=== PATIENT | male | born 1945 | race Caucasian/White ===

== ENCOUNTER 2019-03-03 08:40 | Inpatient (IN) | payer OTHER ==
[~2019-03-03] VITALS: Ht 175.3 cm; Wt 103.5 kg
--- NOTE | ~2019-03-03 | HC ---
[facility] [place] [address] CONSULTATION Name: JOSE SHELTON Room #: 239-P ADM IN M.R.#: [id number] Admission: 03/03/19 ������������������ Attend Phys: Tony Sullivan MD Discharge: ������������������ Date of : 43 Report #: [id number] THIS REPORT FOR: //name// CC: Radu Sullivan DATE OF SERVICE: 03/05/2019 HISTORY OF PRESENT ILLNESS: This 73-year-old white male was admitted through the Emergency Room with development of purpuric rash on his right arm. He had recently been transferred to nursing facility following hospitalization at [facility]. He was initially taken to the [facility] after a fall/striking his head, was found to have a subdural hematoma. He has a remote history of myeloma with no recent treatment, but unfortunately none of those records are currently available. I was able to obtain the records from [facility], which say nothing regarding his myeloma and only in regards to the neurosurgical consultation. PAST MEDICAL HISTORY: Significant for hypertension and previous bipolar disease, coronary artery disease and hyperlipidemia. ALLERGIES: HE HAS AN ALLERGY TO SIMVASTATIN. MEDICATIONS: Listed as in the MFR. REVIEW OF SYSTEMS: Negative for any sweats, chills, fevers, weight loss, new bony pain or masses, but he is a poor historian. PHYSICAL EXAMINATION: GENERAL: Shows him alert in the chair, but confused. NECK: Supple. CHEST: Chest is clear. CARDIOVASCULAR: Normal S1, S2. ABDOMEN: Soft. The skin showed nonblanching purpura on the right arm. This is not palpable or indurated. It is not hot, red or tender. EXTREMITIES: Show no clubbing, cyanosis or edema. NEUROLOGIC: Altered mental status. PSYCHIATRIC: Not agitated. LYMPHATICS: Revealed no palpable supraclavicular adenopathy. LABORATORY DATA: At [facility] show mild thrombocytopenia and renal failure. ASSESSMENT: Purpura. [facility] [address] [place] [address] CONSULTATION Name: JOSE SHELTON Room #: 239-P ADM IN .R.#: [id number] Admission: 03/03/19 ������������������ Attend Phys: Tony Sullivan MD Discharge: ������������������ Date of : 44 Report #: [id number] PLAN: This pattern appears to represent from the right upper arm down, perhaps related to earlier blood pressure cuff application or trauma. Of note, he was to receive Lovenox at [facility]. Still trying to obtain his [facility] records regarding his myeloma, but he does have an elevated IgA level here. We will check a free light chain assay and await those results. Thanks for asking us to be involved in his care. ��������������������������������������������� ���������������������������������������� By: ��������������������������������������������� [id number] Janessa Carpenter MD /nt
--- NOTE | ~2019-03-03 | HC ---
[facility] [place] [address] CONSULTATION Name: JOSE SHELTON Room #: 239-P ADM IN M.R.#: [id number] Admission: 03/03/19 ������������������ Attend Phys: Tony Sullivan MD Discharge: ������������������ Date of : 44 Report #: [id number] THIS REPORT FOR: //name// CC: Radu Sullivan DATE OF SERVICE: 03/06/2019 REASON FOR CONSULTATION: Elevated creatinine. REASON FOR PRESENTATION: Skin rash. HISTORY OF PRESENT ILLNESS: The details were obtained from the chart. The patient is not able to provide me with history. He was admitted on 03/03/2019. He had been in the longterm since 02/07/2019. He was recovering from an event where he had a subdural hematoma that happened on 02/05/2019. The patient was transferred to [facility]. No surgery was done. He was discharged on to nursing facility. The patient has recently moved from [place] and has declining cognitive function. There is a mention that the patient has history of multiple myeloma, but I am not really sure how accurate is that. The patient has received Keflex and Augmentin in his nursing facility and he started to have rash on the right upper extremity and on his groin. He is not able to give me any further details. The patient was admitted to the hospital for further evaluation. Hematology was consulted. Over the last 24 hours, the patient was transferred to the ICU with a potential sepsis picture, hypotension, tachycardia, elevated white blood cell count. Creatinine on presentation was 1.9, this has trended down to 1.8. A consult was placed for me. PAST MEDICAL HISTORY: 1. Myeloma. 2. Subarachnoid hemorrhage. 3. Hypertension. 4. Hyperlipidemia. REVIEW OF SYSTEMS: Completely unobtainable given the patient's current mental status. PAST SURGICAL HISTORY: Unobtainable given the patient's mental status. MEDICATIONS: Listed amongst his medications: 1. Aripiprazole. 2. Atorvastatin. 3. Clonidine. 4. Lasix. 5. Cephalexin. [facility] [address] [place] [address] CONSULTATION Name: JOSE SHELTON Room #: 239-P ADM IN M.R.#: [id number] Admission: 03/03/19 ������������������ Attend Phys: Tony Sullivna MD Discharge: ������������������ Date of : 44 Report #: [id number] 6. Metoprolol. FAMILY HISTORY: Unobtainable. PHYSICAL EXAMINATION: GENERAL: The patient is oriented x 3. VITAL SIGNS: Blood pressure is marginal at 98/55. HEAD AND NECK: No jugular venous distention. CHEST: Decreased air entry bilaterally. CARDIOVASCULAR: No rub. ABDOMEN: Soft, nontender. EXTREMITIES: Lower extremities, no edema. LABORATORY DATA: Reviewed. The patient has significant leukocytosis at 42,000. Thrombocytopenia with a platelet of 102. Sodium 145, BUN is 46, creatinine is 1.8. Lactic acid is 2.3. ASSESSMENT, IMPRESSION AND PLAN: 1. Unknown baseline creatinine. 2. Elevated serum creatinine. 3. Myeloma. 4. Leukocytosis. 5. Thrombocytopenia. 6. Sepsis syndrome. 7. Would like to obtain the patient's laboratory values from [facility] to decide about the patient's baseline creatinine. He does have many risk factors for acute kidney injury including his current sepsis picture, his myeloma history, his hypotension. At this point, we will initiate the patient on albumin given his volume overload. 8. We will initiate diuresis. 9. Avoid nephrotoxins. 10. Discussed group home plans with his family members. ��������������������������������������������� ���������������������������������������� By: ��������������������������������������������� [id number] [id number] Marlon Nicole MD /nt
--- NOTE | ~2019-03-03 | HC ---
[facility] [place] [address] CONSULTATION Name: JOSE SHELTON Room #: 205-P ADM IN M.R.#: [id number] Admission: 03/03/19 ������������������ Attend Phys: Tony Sullivan MD Discharge: ������������������ Date of : 44 Report #: [id number] THIS REPORT FOR: //name// CC: GALEN Sullivan REQUESTING PHYSICIAN: Dr. Thomson. CHIEF COMPLAINT: Altered mental status. HISTORY OF PRESENT ILLNESS: The patient is a 73-year-old male who presented initially to [facility] on 03/03/2019 from rehabilitation facility after acquiring a diffuse rash, which appeared to be petechial in type after starting Augmentin for pneumonia. The patient had recently moved from [place] to [place] on 01/25/2019, had moved in with his sister initially until able to move into apartment. Fortunately, he sustained a fall with a subdural hematoma. Secondary to this, the patient was admitted to [facility]. He has had significant decline since this time and as of this last weekend had been refusing to take anything by mouth, including food or fluids and had been refusing other interventions and stated he did not want any of this, although today, I am unable to elicit this from the patient. He did refuse several things from the speech therapist today including fluids, although he states he does not understand decisions that I presented to him and certainly reports that he cannot make decisions at this time, although he declines to get other people involved. He states that his two sons would be involved; however, his sister is set up as power of corporate associate attorney, which has not yet been activated. Certainly on discussion with the sister, he has an advanced care directive that has reported that he would want no feeding tubes and/or medical interventions aside from possibility of one round of CPR, which again they did not make that clear as to duration necessarily, but that if he were to have no quality of life that he would not want this intervention either. PAST MEDICAL HISTORY: Significant for hypertension, hyperlipidemia. Additionally, may have had some previous cerebrovascular disease or coronary artery disease, potentially for vasculitis. Also found to have bradycardia to the 30s and 40s over this last weekend. SOCIAL HISTORY: Currently listed as full code, but again I have discussed advanced directive in HPI. ALLERGIES: ZOCOR. MEDICATIONS: Fenofibrate, Lasix, Toprol, Remeron, Zantac, Depakote, Lipitor, Abilify. SOCIAL HISTORY: Again, moved from [place] to [place]. No known history of [facility] [address] [place] [address] CONSULTATION Name: JOSE SHELTON Room #: [facility]- ADM IN M.R.#: [id number] Admission: 03/03/19 ������������������ Attend Phys: Tony Sullivan MD Discharge: ������������������ Date of : 44 Report #: [id number] significant tobacco abuse or alcohol use. FAMILY HISTORY: Noncontributory. SURGICAL HISTORY: Unknown at this time. REVIEW OF SYSTEMS: Difficult to obtain aside from the fact that he denies pain and shortness of breath. He is not answering a lot of my questions at this point in time. PHYSICAL EXAMINATION: VITAL SIGNS: Temperature 36.8, pulse 37, respirations 16, blood pressure 147/75, 97% on 2 L nasal cannula. GENERAL: The patient is at least alert to verbal stimuli, oriented to self, no acute distress. HEENT: No scleral icterus, no conjunctival injection. CARDIOVASCULAR: Bradycardic with irregular rhythm. ABDOMEN: Soft, nontender to palpation, S4, positive bowel sounds in all 4 quadrants. RESPIRATORY: Lungs clear to auscultation bilaterally currently. LABORATORY DATA: These included sodium 146, creatinine 1.1 from 1.9 on admission. Platelets 89. Hemoglobin 13.0. ASSESSMENT AND PLAN: 1. Anorexia, unknown origin for this. The patient denies decline in appetite. Certainly this could be due to neurologic effects of his recent subdural hematoma. He does not wish to pursue any kind of feeding tube based on his previous advanced directive, although he is not able to make decisions for me at this current time. Certainly, based on my assessment today, I do not believe the patient should be making his own medical decision. I believe he is incapacitated from medical standpoint and I have recommended this to the primary team that we activate his sister's durable power of corporate associate attorney, so that she can make decisions further for him. On discussion with her at this point in time, she would wish to pursue an inpatient hospice. She has experience with hospice care as she has worked in the hospice field. I did discuss this with case management. We will place referral for this. Possible will need for long-term care with hospice if he is not a candidate for this. 2. Bradycardia. Certainly due to his advanced directive, he did not want to pursue anything along the lines of the pacemaker or artificial device. I did discuss code status with the sister and spent approximately 35 minutes on the discussion of advanced directives and advanced care planning today. We decided on making him a do not resuscitate code status. Certainly, he was not wanting to have any kind of ventilatory support and his short duration CPR wishes would indicate that it would be unlikely that we would benefit significantly from CPR. 3. Subdural hematoma. Again, this may have had an effect on him overall [address] [place] [address] CONSULTATION Name: JOSE SHELTON Room #: 205-P ADM IN M.R.#: [id number] Admission: 03/03/19 ������������������ Attend Phys: Tony Sullivan MD Discharge: ������������������ Date of : 44 Report #: [id number] neurologically. From the standpoint of his significant decline, I do believe at this point in time, he does qualify for hospice care services and we will pursue as above. Please contact me for any questions regarding this patient. At this point in time, I believe he would be very comfortable in the hospital setting. Certainly, we will pursue as discussed before. ��������������������������������������������� ���������������������������������������� By: ��������������������������������������������� [id number] [id number] Ward Lucas DO /nt
[2019-03-03 08:40] VITALS: BP 109/80
--- NOTE | 2019-03-03 09:02 | NUR ---
THIS PROCESS CONTROL TECH CALLED AND SPOKE WITH LANDY RON AT [facility] TO CLARIFY WHAT MEDICATIONS HAVE GONE THROUGH THE IV. SHE REPORTS THE IV WAS STARTED ON 02/26, HAS ONLY GOTTEN 1L OF NS AND HAS HAD NS FLUSHES EVERY SHIFT SINCE
[2019-03-03] MEDS ORDERED: ABILIFY 5 MG TAB5 MG PO (09:07)
[2019-03-03] MEDS ORDERED: ATORVASTATIN CA40 MG PO (09:07)
[2019-03-03] MEDS ORDERED: AUGMENTIN 875-1 EACH (09:09)
[2019-03-03] MEDS ORDERED: VITAMIN D1000 UNI1 PO (09:09)
[2019-03-03] MEDS ORDERED: BISACODYL SUPP10 MG RECTAL (09:09)
[2019-03-03] MEDS ORDERED: DEPAKOTE125 MG PO (09:10)
[2019-03-03] MEDS ORDERED: FENOFIBRATE160 MG PO (09:10)
[2019-03-03] MEDS ORDERED: CLONIDINE0.1 PO (09:10)
[2019-03-03] MEDS ORDERED: LASIX 20 MG TAB20 MG PO (09:11)
[2019-03-03] MEDS ORDERED: KEFLEX500 M2 PO (09:12)
[2019-03-03] MEDS ORDERED: LOPRESSOR25 PO (09:12)
[2019-03-03] MEDS ORDERED: KLOR-CON 1010 MEQ PO (09:13)
[2019-03-03] MEDS ORDERED: REMERON15 MG PO (09:13)
[2019-03-03] MEDS ORDERED: MILK OF MA400 MG/5 M PO (09:13)
[2019-03-03] MEDS ORDERED: RANITIDINE 150150 M1 PO (09:13)
[2019-03-03 09:32] LABS: ABSOLUTE NEUTROPHILS 4.2 thou/uL (1.4-8.2); BASOPHILS 0.3 % (0.0-2.0); EOSINOPHILS 0.9 % (0.0-3.0); HEMATOCRIT 47.5 % (42.0-52.0); HEMOGLOBIN 16.3 gm/dL (14.0-18.0); LYMPHOCYTES 17.2 % (24.0-44.0); MCH 29.3 pg (26.0-34.0); MCHC 34.2 g/dL (28.0-37.0); MCV 85.7 fL (80.0-100.0); MONOCYTES 10.9 % (1.0-8.0); PLATELET COUNT 119 thou/uL (150-400); POLYS 70.7 % (36.0-66.0); RBC 5.55 mil/uL (4.50-6.00); RDW 16.9 % (10.5-14.5); WBC 5.9 thou/uL (4.0-11.0)
[2019-03-03 09:39] LABS: CALCIUM 10.1 mg/dL (8.5-10.1); CREATININE 1.9 mg/dL (0.7-1.3); POTASSIUM 4.3 mmol/L (3.5-5.1)
[2019-03-03 09:41] LABS: APTT 29.9 Seconds (24.5-32.8); PROTIME 10.1 Seconds (9.3-11.4)
[2019-03-03 10:17] LABS: URINE BILIRUBIN NEGATIVE (Negative); URINE BLOOD TRACE (Negative); URINE CLARITY CLEAR; URINE COLOR YELLOW; URINE GLUCOSE-RANDOM* NEGATIVE (Negative); URINE KETONES NEGATIVE (Negative); URINE LEUKOCYTES-REFLEX NEGATIVE (Negative); URINE NITRITE-REFLEX NEGATIVE (Negative); URINE PROTEIN (DIPSTICK) NEGATIVE (Negative); URINE SPECIFIC GRAVITY 1.015 (1.005-1.035)
[2019-03-03 12:42] VITALS: BP 111/81
[2019-03-03 13:11] VITALS: BP 105/81; BP 107/79
[2019-03-03 16:40] VITALS: BP 96/63
--- NOTE | 2019-03-03 16:42 | NUR ---
Assumed care of Pt on arrival to unit at approx 1400. pt presents in no acute distress, accompanied by sister and brother in law. pt confused but oriented to self and time. no attempts made to get out of bed, but pulling out peripheral iv's and telemetry leads occasionally. able to follow commands appropriately. vasculitis present to left upper ext, edematous fingers hematology to see. pt denies pain, burning or itching to sites. incontinent of bowel and bladder. home meds reconciled. SCDs applied to BLE. no other skin issues. sinus on telemetry. pt progressing toward poc goals.
[2019-03-03 19:58] VITALS: BP 111/75
[2019-03-04 00:02] VITALS: BP 104/70
--- NOTE | 2019-03-04 03:12 | NUR ---
ASSUMED PT CARE AROUND 1900. ORIENTED X 2-3, FORGETFUL AND CONFUSED. DENIES ANY PAIN. PT SLEPT MOST OF THE NIGHT BUT IS EASILY ARROUSABLE. PT IS ABLE TO REPOSITION SELF IN BED. IVF INFUSING ORDERED. VSS. AFEBRILE. REDNESS STILL NOTED TO RT HAND AND ARM. FALL PRECAUTIONS IN PLACE. NOT PROGRESSING WELL TOWARD POC GOALS. WILL CONTINUE TO MONITOR FURTHER.
[2019-03-04 04:50] VITALS: BP 108/68
[2019-03-04 07:40] VITALS: BP 116/72
[2019-03-04 10:08] LABS: IgG 1333 mg/dL (700-1600); IgM 142 mg/dL (15-143)
[2019-03-04 11:10] LABS: IgA 1063 mg/dL (61-437)
--- NOTE | 2019-03-04 15:53 | NUR ---
ASSESSMENT: CM REVIEWED CHART. PT WAS BROUGHT IN DUE TO VASCULITIS, SUBDERMAL HEMATOMA, LOAN. PT WAS RECENTLY AT [facility] AND WENT TO [facility] AND HAS BEEN THERE SINCE. CM SPOKE WITH PATIENTS SISTER/DPOA WHO STATES PATIENT MOVED TO AND WAS SUPPOSED TO GO LIVE IN A SENIOR APT BUT WAS WEAK AND STAYING WITH HIS SISTER AND FELL IN THE HOME. PT HAS BEEN AT [facility] AND PLANS TO RETURN THERE AT DISCHARGE. CM NOTIFIED ADMISSIONS AT [facility] WELL FAXED CLINICAL. SISTER REPORTS PATIENT HAD BEEN USING A WALKER AND WHEELCHAIR AT REHAB BUT WAS NOT USING THIS WHEN HE WAS AT HOME. PT HAS HX OF MULTIPLE MYELOMA WHICH WAS IN REMISSION BUT PT HAS A RASH AND THIS MAY BE CONTRIBUTING TO IT. CM WILL CONTINUE TO FOLLOW TO ASSIST NEEDED.
[2019-03-04 15:56] VITALS: BP 96/54
[2019-03-04 20:24] VITALS: BP 99/66
[2019-03-05] VITALS (16 sets, daily range): BP systolic 69–118; BP diastolic 45–94
--- NOTE | 2019-03-05 01:05 | NUR ---
BP LOW. HR 40S-60S. IVF INFUSING ORDERED. PT HAD NOT VOIDED SO FAR THIS SHIFT. BLADDER SCAN 593ML. NOTIFIED MINING HELPER TOWBOAT CAPTAIN FOR HOSPITALIST. CONTINUE IVF. STRAIGHT CATH X1. THIS RN WENT TO PTS ROOM TO PERFORM STRAIGHT CATH FOR RETENTION AND PT WAS NOTED TO BE INCONTINENT OF LARGE AMOUNT OF URINE. UPDATED MINING HELPER. CANCEL STRAIGHT CATH ORDER. WILL CONTINUE TO MONITOR FURTHER.
--- NOTE | 2019-03-05 03:20 | NUR ---
ASSUMED PT CARE AROUND 1900. PT IS CONFUSED. PT IS DROWSY AND SLEPT MOST OF THE NIGHT BUT IS OFTEN RESTLESS IN HIS SLEEP. DENIES ANY PAIN. INCONTINENT OF URINE. PT IS ABLE TO MOVE SELF IN BED. IVF INFUSING ORDERED. FALL PRECAUTIONS IN PLACE. NOT PROGRESSING WELL TOWARD POC GOALS.
--- NOTE | 2019-03-05 13:16 | NUR ---
ON-GOING ASSESSMENT: CM CONTACTED ADMISSIONS AT [facility] TO LET THEM KNOW PT IS NOT MEDICALLY STABLE FOR DISCHARGE AT THIS TIME. CM FAXED UPDATED CLINICAL TO SNF. CM ASKED TO VERIFY HOW MANY SNF DAYS PATIENT HAS LEFT AND ADMISSIONS STATES THEY WILL CHECK WITH THEIR BUSINESS OFFICE AND CONTACT CM BACK. CM WILL CONTINUE TO FOLLOW TO ASSIST NEEDED.
[2019-03-05 14:06] LABS: KAPPA FREE LIGHT CHAINS 142.6 mg/L (3.3-19.4); KAPPA/LAMBDA RATIO 1.26 (0.26-1.65); LAMBDA FREE LIGHT CHAINS 113.6 mg/L (5.7-26.3)
--- NOTE | 2019-03-05 18:39 | NUR ---
PATIENT REMAINS QUITE RESTLESS ALTERNATING WITH DEEP SLEEP. HE DOES APPEAR IF HE IS IN A DAZE WHERE HE ATTEMPTS TO RESCUE HIMSELF BY TURNING AND CHURNING IN BED. HE HAS ATTEMPTED TO TAKE OFF HIS IV ON NUMBEROUS OCCASIONS. HE HAS BEEN REDIRECTED TO NO EFFECT. BOTELLO CATH PLACED HE HAD A POST VOID RESIDUAL GREATER THAN 400. WILL CONT WITH PLAN OF CARE.
[2019-03-05 20:34] LABS: HEMATOCRIT 39.7 % (42.0-52.0); MCH 28.2 pg (26.0-34.0); MCHC 32.9 g/dL (28.0-37.0)
[2019-03-05 20:35] LABS: MCV 85.7 fL (80.0-100.0); PLATELET COUNT 90 thou/uL (150-400); RBC 4.63 mil/uL (4.50-6.00); RDW 15.9 % (10.5-14.5); WBC 17.5 thou/uL (4.0-11.0)
[2019-03-05 20:36] LABS: HEMOGLOBIN 13.1 gm/dL (14.0-18.0)
[2019-03-05 20:41] LABS: CALCIUM 8.9 mg/dL (8.5-10.1); CREATININE 1.9 mg/dL (0.7-1.3); POTASSIUM 3.5 mmol/L (3.5-5.1)
[2019-03-05 20:45] LABS: URINE BILIRUBIN 2+ (Negative); URINE BLOOD 3+ (Negative); URINE CLARITY SL CLOUDY; URINE COLOR ORANGE; URINE GLUCOSE-RANDOM* NEGATIVE (Negative); URINE KETONES NEGATIVE (Negative); URINE NITRITE-REFLEX NEGATIVE (Negative); URINE PROTEIN (DIPSTICK) TRACE (Negative); URINE UROBILINOGEN >= 8.0 E.U./dl (0.2-1.0)
[2019-03-05 20:46] LABS: URINE LEUKOCYTES-REFLEX 1+ (Negative)
--- NOTE | 2019-03-05 20:48 | NUR ---
RAPID RESPONSE INITIATED, SEE FLOW SHEET AND DOCUMENTATION.
[2019-03-05 20:54] LABS: BACTERIA-REFLEX 1-9 Few /HPF (None Seen); MUCUS 0-3 Light strn/LPF (None Seen); SQUAMOUS 0-3 Few /LPF (0-3); URINE WBC-REFLEX 6-15 Few /HPF (0-5)
[2019-03-05 20:55] LABS: CASTS None Seen /LPF (None Seen); CRYSTALS None Seen /LPF (None Seen); WBC CLUMPS Few (None Seen)
[2019-03-05 20:56] LABS: ABSOLUTE NEUTROPHILS 15.9 thou/uL (1.4-8.2); ANISOCYTOSIS 1+
[2019-03-05 20:59] LABS: BE(vivo) -4.7 mmol/L (-2 to +3); HCO3 17.4 mmol/L (22.0-26.0); PCO2 25.2 mmHg (35.0-45.0); pH 7.458 (7.360-7.450); sO2 97.2 % (92.0-98.0)
--- NOTE | 2019-03-05 21:05 | NUR ---
PT RAPID RESPONSE. ABG'S OBTAINED. RESULTED IN CRITCAL LAB OF LACTATIC ACID 4.75. INSPECTING MACHINE ADJUSTER BELIA PRESENT, RECEIVED ORDERS FOR REDRAW IN 4 HOURS (0100). WILL CONTINUE TO MONITOR.
--- NOTE | 2019-03-05 22:23 | NUR ---
ASSUMED PT CARE AROUND 1900. ORIENTED TO PERSON AND MONTH. VERY DROWSY BUT EASILY ARROUSABLE. PT IS RESTLESS IN BED. DENIES ANY PAIN. UPON INITIAL ASSESSMENT, PT NOTED TO BE SINUS TACHYCARDIA WITH HR 120S-130S. HYPOTENSIVE. BOTELLO TO DD WITH MINIMAL UO. NOTIFIED LIBRARY MANAGER FABRIC WORKER FOREMAN FOR HOSPITALIST. ORDER RECEIVED TO GIVE 250ML NS BOLUS. BOLUS GIVEN WITH NO IMPROVEMENT IN VITAL SIGNS. RESERVATION AGENT PAGED. NOTIFIED LIBRARY MANAGER. SEE RESERVATION AGENT FLOWSHEET FOR DETAILS. LIBRARY MANAGER ROUNDED ON PT AND NOTIFIED OF LAB RESULTS, ABG, CXRAY, AND UA. ANOTHER 250ML NS BOLUS GIVEN PER ORDER. SBP 80S. SEPSIS SCREEN POSITIVE, LIBRARY MANAGER AWARE. BP STILL LOW AFTER RESERVATION AGENT AND BOTH NS BOLUSES. LIBRARY MANAGER NOTIFIED AND ORDERS RECEIVED TO TRANSFER PT TO ICU.
--- NOTE | 2019-03-05 22:52 | NUR ---
LEFT MESSAGE FOR SISTER REGARDING PATIENT TRANSFER TO ICU.
--- NOTE | 2019-03-05 23:08 | NUR ---
PT TRANSFERED TO ICU AT 9590. REPORT GIVEN TO CALIBRATION LABORATORY TECHNICIAN.
--- NOTE | 2019-03-05 23:10 | NUR ---
SPOKE WITH PT'S SISTER TO UPDATE HER ON PT TRANSFER.
--- NOTE | 2019-03-05 23:30 | NUR ---
PT ARRIVED TO UNIT AT 2246. CELESTINO NOTIFIED OF PT ARRIVAL. PT PLACED ON TELEMETRY. CELESTINO TO COME SEE PT AND PUT IN ORDERS. SHE SAID CONTINUE WITH MAINTENANCE IVF AND THE ANTIBIOTIC THAT WAS ORDERED ON 3W.
[2019-03-06] VITALS (45 sets, daily range): BP systolic 70–129; BP diastolic 38–86
[2019-03-06 01:46] LABS: CALCIUM 8.2 mg/dL (8.5-10.1); CREATININE 1.9 mg/dL (0.7-1.3); MAGNESIUM 1.5 mg/dL (1.8-2.4)
[2019-03-06 04:29] LABS: HEMOGLOBIN 12.6 gm/dL (14.0-18.0); RBC 4.47 mil/uL (4.50-6.00)
[2019-03-06 04:33] LABS: CALCIUM 8.2 mg/dL (8.5-10.1); CREATININE 1.9 mg/dL (0.7-1.3); POTASSIUM 4.6 mmol/L (3.5-5.1)
[2019-03-06 04:34] LABS: HEMATOCRIT 38.1 % (42.0-52.0); MCH 28.3 pg (26.0-34.0); MCHC 33.2 g/dL (28.0-37.0); MCV 85.2 fL (80.0-100.0); PLATELET COUNT 102 thou/uL (150-400); RDW 16.6 % (10.5-14.5)
[2019-03-06 04:36] LABS: WBC 42.3 thou/uL (4.0-11.0)
[2019-03-06 05:32] LABS: ABSOLUTE NEUTROPHILS 37.6 thou/uL (1.4-8.2); METAMYELOCYTES 1 %
--- NOTE | 2019-03-06 05:32 | NUR ---
PT RESTING COMFORTABLE IN BED. BP MANAGED WITH LEVO GTT. PT RECEIVED ALBUMIN, ROCEPHIN, VANCOMYCIN, AND ZOSYN DURING THE NIGHT. PT NO C/O PAIN. PT REMAINS DROWSY AND A&O X2-3. PT AFEBRILE. PT REMAINS WITH LOW URINE OUTPUT WILL CALL CELESTINO CELAYA PRODUCT INSPECTION SUPERVISOR TO NOTIFY HER AND OF PT BNP. PT ON 2L NC SATS 98%. RIGHT ARM/HAND RASH/PETECHIAE REMAINS UNCHANGED SINCE PT WAS TX DOWN FROM 3W LAST NIGHT.
[2019-03-06 05:33] LABS: ANISOCYTOSIS 1+; PLATELET ESTIMATE DECREASED
--- NOTE | 2019-03-06 07:22 | NUR ---
PATIENT PLACED ON HOLD DUE TO A CHANGE IN MEDICAL STATUS AND TRANSFER TO ICU. WILL AWAIT NEW OT ORDERS ONCE PATIENT IS MEDICALLY STABLE.
--- NOTE | 2019-03-06 08:14 | NUR ---
Pt TRANSFERRED TO ICU D/T CHANGE IN MEDICAL STATUS. WILL NEED NEW PT ORDERS TO RESUME THERAPY WHEN Pt IS APPROPRIATE FOR THERAPY SERVICES AND MEDICALLY STABLE.
--- NOTE | 2019-03-06 08:19 | EKG ---
[address] [address] ELECTROCARDIOGRAM REPORT Name: JOSE SHELTON Room #: 239-P ADM IN M.R.#: [id number] ������������������ Admission: 03/03/19 ������������������ Attend Phys: Tony Sullivan MD Discharge: ������������������ Date of : 43 Report #: [id number] ����������������������������������������������������������������� [id number] THIS REPORT FOR: //name// [facility] Test Date: 2019-03-05 Test Time: 20:26:41 Pat Name: JOSE SHELTON Department: Room: 239 Gender: M Collections Attorney: Manuel CRUZ : 1945 Requested By: Lakshmi Patterson Order Number: [id number] MD: Terrence Streeter Measurements Intervals [place] Rate: 119 P: 46 MI: 153 QRS: 12 QRSD: 89 T: 183 QT: 296 QTc: 417 Interpretive Statements Sinus tachycardia Abnormal T, consider ischemia, lateral leads No previous ECG available for comparison Electronically Signed On 03-06-2019 8:19:25 CDT by Terrence Streeter [email or web address] ��������������������������������������������� <ELECTRONICALLY SIGNED> ���������������������������������������� By: Terrence Streeter MD ��������������������������������������������� 03/06/19818 25 25 Terrence Streeter MD /SAI
[2019-03-06 08:50] LABS: CALCIUM 8.8 mg/dL (8.5-10.1); CREATININE 1.8 mg/dL (0.7-1.3); POTASSIUM 4.6 mmol/L (3.5-5.1)
[2019-03-06 09:56] LABS: ALBUMIN 2.4 g/dL (3.4-5.0); DIRECT BILIRUBIN 3.7 mg/dL (<0.1-0.3); TOTAL BILIRUBIN 4.7 mg/dL (<0.1-1.0); TOTAL PROTEIN 6.3 g/dL (6.4-8.2)
[2019-03-06 13:30] LABS: URINE CREATININE-RANDOM* 95.1 mg/dL; URINE PROTEIN-RANDOM* 85.8 mg/dL (<11.9)
--- NOTE | 2019-03-06 13:32 | NUR ---
PT TRANSFERRED FROM WITH SEPSIS/HYPOTENSION AND REQUIRED LEVOPHED GTT...WHICH IS NOW OFF. DC PLAN RETURN TO [facility] WHEN MEDICALLY STABLE.
[2019-03-06 15:10] LABS: KAPPA FREE LIGHT CHAINS 61.1 mg/L (3.3-19.4); KAPPA/LAMBDA RATIO 1.21 (0.26-1.65); LAMBDA FREE LIGHT CHAINS 50.7 mg/L (5.7-26.3)
--- NOTE | 2019-03-06 15:55 | NUR ---
Left message with [facility]. Sp with sister patient admitted from [facility] to [facility] approx 02/12 for skilled unit. Patient has no secondary insurance. He has VA benefits he had a PCP in [place] and now since moved here he has an apt with Dr Thorpe from [facility]. SP with patients sister who reports she has completed medicaid application if patient needs ltc at [facility]. [facility] once stable.
--- NOTE | 2019-03-06 17:39 | NUR ---
CONSULT FOR ID AND RENAL COMPLETE. PT TO HAVE ABDOMINAL AND RENAL ULTRASOUND THIS EVENING. HAS BEEN NPO UNTIL ULTRASOUND IS COMPLETE. LEVO GTT TITRATED OFF. BLOOD PRESSURES WITH MAP >60. EPISODES OF BRADYCARDIA. METOPROLOL CONTINUES TO BE HELD. GOOD URINE OUTPUT. PT ALERT TO SELF ONLY. CENTERAL LINE PLACED THIS AFTERNOON BY IV NURSE. WILL CONTINUE TO MONITOR.
[2019-03-06 18:09] LABS: GLOBULIN TOTAL 4.5 g/dL (2.2-3.9); M-SPIKE Not Observed g/dL (Not Observed)
--- NOTE | 2019-03-06 18:38 | NUR ---
VASCULAR ACCESS CONSULTED FOR A CL FOR THIS PT FOR MULTIPLE IV MEDS,ICU STATUS AND A RT LIMB ALERT. A 5FRTL PLACED IN RT IJ WITHOUT COMPLICATIONS. PLEASE SEE INSERTION RECORD FOR DETAILS
[2019-03-07] VITALS (24 sets, daily range): BP systolic 92–140; BP diastolic 56–82
[2019-03-07 06:12] LABS: CALCIUM 8.4 mg/dL (8.5-10.1)
--- NOTE | 2019-03-07 07:58 | NUR ---
PT IS LETHARGIC, AROUSABLE TO NAME, ORIENTED TO SELF.PT WAS SINUS BRADYCARDIA HEART RATE 40 TO 50'S, OCCASIONALLY DROPPED TO 38 BUT DID NOT MAINTAIN THERE. PT ASYMPTOMATIC WITH LOW PULSE, METOPROLOL HELD D/T BRADYCARDIA, KNUCKLE STRAP SEWER BELIA NOTIFIED. PT RESTED WELL MOST OF THE NIGHT, BECAME RESTLESS CLINICAL INFORMATICIST ROLLING AND TURNING IN BED, PULLED PICC LINE OUT, NO BLEEDING NOTED.PT DENIES PAIN, REDIRECTS EASILY, BUT IS FORGETFULL, PERIPHERAL IV STARTED AND PROTECTIVE DRESSING APPLIED.
--- NOTE | 2019-03-07 09:01 | HC ---
[facility] [place] [address] CONSULTATION Name: JOSE SHELTON Room #: 239-[facility] IN M.R.#: [id number] Admission: 03/03/19 ������������������ Attend Phys: Tony Sullivan MD Discharge: ������������������ Date of : 43 Report #: [id number] THIS REPORT FOR: //name// CC: Radu Sullivan DATE OF SERVICE: 03/06/2019 TYPE OF REPORT: Infectious disease consultation. ATTENDING PHYSICIAN: Tony Sullivan M.D. REASON FOR CONSULTATION: Sepsis. HISTORY OF PRESENT ILLNESS: A 73-year-old white man admitted with a purpuric eruption, right upper extremity; last night became septic; hypotensive with lactic and metabolic acidosis. He is transferred to the intensive care unit. He is on Levophed as well as vancomycin and Zosyn. He is receiving high dose intravenous steroids. The patient tells me he is , 2 children recently hospitalized with a subarachnoid hemorrhage at [facility]. Records are still not available for review. DRUG ALLERGIES: SIMVASTATIN. MEDICATIONS: The patient is on treatment with vancomycin 500 mg IV every 12 hours post loading dose, Zosyn 3.375 grams IV every 8 hours, methylprednisolone 125 mg IV q. 6 hours, Lasix 40 mg IV twice daily, Levophed drip with p.r.n. vasopressin, p.r.n. glucose, glucagon, tamsulosin, famotidine, aripiprazole, divalproex and metoprolol. PAST MEDICAL HISTORY: 1. Recent subarachnoid bleed, treated at [facility]. 2. History of multiple myeloma, question stage, question type. 3. Question recent development of pneumonia, on treatment with Keflex and subsequently, Augmentin. 4. Dyslipidemia. 5. Hypertension. SOCIAL HISTORY: See H and P, old records. FAMILY HISTORY: See H and P, old records. REVIEW OF SYSTEMS: As above and see H and P. The patient is deemed to be not a good historian. PHYSICAL EXAMINATION: [facility] [address] [place] [address] CONSULTATION Name: JOSE SHELTON Room #: 239-P ADM IN M.R.#: [id number] Admission: 03/03/19 ������������������ Attend Phys: Tony Sullivan MD Discharge: ������������������ Date of : 43 Report #: [id number] GENERAL: A well-developed, edematous man. VITAL SIGNS: Afebrile since admission, hypotensive with blood pressure as low as 73/48, pulse on admission 91. He becomes tachycardic 118 yesterday, tachypneic and remains afebrile throughout. Intake 3349 and output 850 in the last 24 hours. O2 saturation 96% oxygen nasal cannula 2 liters per minute. HEENMT: Arcus cornealis. Pupils are reactive. Mouth: Upper and lower plates. NECK: Supple. No thyromegaly. Lymphoglandular negative. LUNGS: Basilar crackles. HEART: S1 and S2. No gallop. ABDOMEN: Soft. No masses or megaly. GENITALIA: Snell catheter in place. RECTAL: Deferred. EXTREMITIES: Reveal purpuric lesions on the right upper extremity particularly and also on the right foot. LABORATORY DATA: Sodium 145, chloride 113, CO2 20, BUN 46, creatinine 1.8 and glucose 132. Lactic acid elevated down to 2.3 millimoles per liter. NT-pro-BNP 12,146. C-reactive protein 47.5. White blood cell count jumped to 42,300, hemoglobin 12.6 g/dL and platelets 102,000 today. The white blood cell count differential reveals 60% segmented neutrophil and 29% bands. 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 Immunofixation pending. Urinalysis abnormal with positive bilirubin, positive blood, positive urobilinogen, pyuria, microscopic hematuria and bacteriuria are present. ABGs revealed pH 7.45, pCO2 of 25, pO2 87, bicarbonate 17.4 and lactate 4.75 millimoles per liter. These set of gases on 2 liters oxygen nasal cannula. MICROBIOLOGY DATA: Blood and urine cultures pending at the time of this dictation. RADIOLOGY EVALUATION: Chest x-ray revealed vascular congestion, bilateral distal opacities, question pulmonary edema, small right pleural effusion, stigmata of old granulomatous disease. Renal ultrasound pending. ASSESSMENT: 1. Severe sepsis. 2. Severe leukocytosis with bandemia secondary to above. 3. Possible biliary tree versus urinary tract infection. 4. IgA multiple myeloma. 5. Purpuric eruption, right upper extremity, right foot. 6. Acute kidney injury. SUGGESTIONS: Recommend continue treatment with vancomycin and Zosyn. Decrease dose Solu-Medrol 40 mg IV every 6 hours. Continue intravenous fluids. Ultrasound of gallbladder, biliary tree. [address] [address] CONSULTATION Name: JOSE SHELTON Room #: 239-P ADM IN M.R.#: [id number] Admission: 03/03/19 ������������������ Attend Phys: Tony Sullivan MD Discharge: ������������������ Date of : 43 Report #: [id number] Sullivan, thank you for requesting my suggestions. ��������������������������������������������� <ELECTRONICALLY SIGNED> ���������������������������������������� By: Jean-Claude Streeter MD ��������������������������������������������� 03/07/19 0901 0938 [id number] Jean-Claude Streeter MD /nt
[2019-03-07 10:47] LABS: ABSOLUTE NEUTROPHILS 12.4 thou/uL (1.4-8.2); BASOPHILS 0.1 % (0.0-2.0); HEMATOCRIT 35.6 % (42.0-52.0); HEMOGLOBIN 11.8 gm/dL (14.0-18.0); LYMPHOCYTES 4.4 % (24.0-44.0); MCH 28.4 pg (26.0-34.0); MCHC 33.2 g/dL (28.0-37.0); MCV 85.8 fL (80.0-100.0); MONOCYTES 2.9 % (1.0-8.0); PLATELET COUNT 59 thou/uL (150-400); POLYS 92.6 % (36.0-66.0); RBC 4.15 mil/uL (4.50-6.00); RDW 16.6 % (10.5-14.5)
[2019-03-07 10:53] LABS: WBC 13.3 thou/uL (4.0-11.0)
--- NOTE | 2019-03-07 12:47 | 2DMMODE ---
[facility] [address] [address] 2 D/M-MODE ECHOCARDIOGRAM Name: JOSE SHELTON Room #: 239-P ADM IN M.R.#: [id number] ������������� Admission: 03/03/19 ������������� Attend Phys: Tony Sullivan MD Discharge: ��� ������������� ��� Date of : 43 Date of Service: 03/07/19 1246 �� Report #: [id number] �������� ��������������������������������������������[id number] THIS REPORT FOR: //name// APPROVED REPORT Study performed: 03/07/2019 11:29:48 EXAM: Comprehensive 2D, Doppler, and color-flow Echocardiogram Patient Location: In-Patient Room #: 239 Status: routine BSA: 2.08 HR: 40 bpm BP: 107/67 mmHg Rhythm: Bradycardia Other Information Study Quality: Adequate Indications Bradycardia CAD Hypertension/HDD 2D Dimensions RVDd: 38.48 mm IVSd: 9.64 (7-11mm) LVOT Diam: 23.24 (18-24mm) LVDd: 53.33 mm PWd: 11.23 (7-11mm) Ascending Ao: 33.93 (22-36mm) LVDs: 44.47 (25-40mm) Aortic Root: 41.97 mm IVC: 30.00 mm Volumes Left Atrial Volume (Systole) Single Plane 4CH: 66.82 mL Single Plane 2CH: 43.35 mL LA ESV Index: 28.00 mL/m2 Aortic Valve AoV Peak Hany.: 0.94 m/s AO Peak Gr.: 3.54 mmHg LVOT Max P.35 mmHg LVOT Max V: 0.58 m/s RAAD Vmax: 2.62 cm2 Mitral Valve [facility] [address] [place] [address] 2 D/M-MODE ECHOCARDIOGRAM Name: JOSE SHELTON Room #: 239-P ADM IN Nuvia.#: [id number] ������������� Admission: 03/03/19 ������������� Attend Phys: Tony Sullivan MD Discharge: ��� ������������� ��� Date of : 43 Date of Service: 03/07/19 1246 �� Report #: [id number] �������� ��������������������������������������������[id number] E/A Ratio: 0.7 MV Decel. Time: 390.88 ms MV E Max Hany.: 0.45 m/s MV A Hany.: 0.69 m/s MV PHT: 113.36 ms IVRT: 129.18 ms Pulmonary Valve PV Peak Hany.: 0.75 m/s PV Peak Gr.: 2.26 mmHg Tricuspid Valve TR Peak Hany.: 2.76 m/s RAP Estimate: 15.00 mmHg TR Peak Gr.: 30.55 mmHg PA Pressure: 46.00 mmHg Left Ventricle The left ventricle is normal size. There is global hypokinesis of the left ventricle. There is normal left ventricular wall thickness. Left ventricular ejection fraction is moderate to severely decreased. LVEF is 30-35%. Mild diastolic dysfunction is present (impaired relaxation pattern). Right Ventricle Right ventricle is mild to moderately dilated. The right ventricular systolic function is normal. Atria The left atrium size is normal. Right atrium is mildly dilated. Aortic Valve The aortic valve is normal in structure. Trace aortic regurgitation. There is no aortic valvular stenosis. Mitral Valve The mitral valve is normal in structure. Mild mitral regurgitation. No evidence of mitral valve stenosis. Tricuspid Valve The tricuspid valve is normal in structure. Trace to mild tricuspid regurgitation. PAP is estimated at 46 mmHg. Pulmonic Valve Pulmonic valve is not well visualized. Trace pulmonic regurgitation. [facility] [address] [place] [address] 2 D/M-MODE ECHOCARDIOGRAM Name: JOSE SHELTON Room #: 239-P ADM IN M.R.#: [id number] ������������� Admission: 03/03/19 ������������� Attend Phys: Tony Sullivan MD Discharge: ��� ������������� ��� Date of : 43 Date of Service: 03/07/19 1246 �� Report #: [id number] �������� ��������������������������������������������[id number] [employer] Aortic root is mildly dilated at 4.2 cm. Ascending aorta is normal in caliber. IVC is dilated and collapses <50% with inspiration. Pericardium There is no pericardial effusion. <Conclusion> The left ventricle is normal size. There is global hypokinesis of the left ventricle. LVEF is 30-35%. Mild diastolic dysfunction is present (impaired relaxation pattern). Right ventricle is mild to moderately dilated. The left atrium size is normal. Right atrium is mildly dilated. Trace aortic regurgitation. Mild mitral regurgitation. Trace to mild tricuspid regurgitation. PAP is estimated at 46 mmHg. Trace pulmonic regurgitation. Aortic root is mildly dilated at 4.2 cm. There is no pericardial effusion. ��������������������������������������������� <ELECTRONICALLY SIGNED> ���������������������������������������� By: Sg Adamson MD, FACC ��������������������������������������������� 03/07/19 1246 1246 1246 Sg Adamson MD, FACC /INF
--- NOTE | 2019-03-07 16:26 | NUR ---
FAXED CLINICAL UPDATE TO [facility] SPOKE WITH ADM. CHU AND SHE RECEIVED UPDATE AND WILL ACCEPT PT. BACK AT [place] TO FOLLOW.
--- NOTE | 2019-03-07 19:40 | NUR ---
PT MORE ALERT TODAY, REMAINS CONFUSED BUT NOT DROWSY. BLOOD PRESSURES STABLE. REMAINS OFF PRESSORS. NOTED SUSTAINED BRADYCARDIA, RATES 30-40'S. INFORMED DR. SCOTT WHO PLACED A CARDIOLOGY CONSULT. SEEN BY CARDIOLOGY - ORDERS FOR EKG AND ECHO AND TO CONTINUE TO MONITOR PATIENT. CURRENTLY ASYMPTOMATIC. WORKED WITH PT/OT. SAT UP IN THE CHAIR FOR SHORT PERIOD OF TIME. VERY POOR APPETITE. SPOKE WITH RN BONE MARROW TRANSPLANT ABOUT MEAL SUPPLEMENTS. FALL PRECAUTIONS IN PLACE.
[2019-03-08] VITALS (17 sets, daily range): BP systolic 132–166; BP diastolic 63–109
[2019-03-08 04:17] LABS: ALBUMIN 3.7 g/dL (3.4-5.0); CALCIUM 9.5 mg/dL (8.5-10.1); CREATININE 1.7 mg/dL (0.7-1.3); PHOSPHORUS 3.1 mg/dL (2.5-4.9); POTASSIUM 4.3 mmol/L (3.5-5.1)
--- NOTE | 2019-03-08 04:27 | NUR ---
PATIENT DROWSY AOX 1 ONLY TO SELF. VITALS STABLE. BRADYCARDIC WHOLE NIGHT HR BETWEEN 30 - 45. EVENING METOPROLOL WAS HELD LAST NIGHT. DOES NOT EAT MUCH. ONLY ASKS FOR A FEW SIPS OF DRINKS. PT OTHERWISE APPEAR COMFORTABLE. DENIES PAIN, NAUSEA OR VOMITING. PHARMACY UPDATED ABOUT VANCO TROUGH. DOSE ADJUSTED ACCORDINGLY. NO FURTHER CONCERNS AT THIS TIME. WILL CONTINUE TO FOLLOW POC.
[2019-03-08 10:44] LABS: HEMOGLOBIN 11.8 gm/dL (14.0-18.0); MCH 28.7 pg (26.0-34.0); MCHC 33.6 g/dL (28.0-37.0); MCV 85.4 fL (80.0-100.0); RBC 4.1 mil/uL (4.50-6.00); RDW 17.2 % (10.5-14.5)
[2019-03-08 10:57] LABS: TOTAL BILIRUBIN 1.7 mg/dL (<0.1-1.0); TOTAL PROTEIN 6.9 g/dL (6.4-8.2)
--- NOTE | 2019-03-08 16:14 | NUR ---
Likely transfer out of ICU later today to tele unit. Pt continues to have low heart rate. No weekend dc anticipated. Will updated [facility] on Monday.
--- NOTE | 2019-03-08 18:45 | NUR ---
Assumed care of patient at 0700. Patient awake, forgetful of surroundings, but cooperative. Denies any pain, SOB, nausea, or any other concerns. Very poor appetite, taking < 10% of trays. 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 IVF per renal. Continues with IV abx per ID. HR remains low in 40s, other VSS. Holding metoprolol and other cardiac meds. Ok'd to move out if ICU. Report called to LANDY Mendoza on CCU, patient transfer to room 205.
--- NOTE | 2019-03-09 03:37 | NUR ---
RECEIVED REPORT AT 1915; PT. ON BED; CALM; DURING ASSESSMENT PT. COOPERATIVE; CALM; ALERT TO PERSON, AND SITUATION; ST. NO HAVING PAIN; ABLE TO REST FOR ABOUT 2H EARLY ON THE NIGHT; AT 2300 PT. RESTLESS ON BED; IV PULLED; GOWN OFF; ST. NO HAVING PAIN; NOT ABLE TO REST WITH EYES CLOSE THROUGH THE NIGHT; HR ON THE 30'S-40'S; SBP 167 EARLY ON THE NIGHT; BY MIDNIGHT SBP 144; NO BP MEDICATION GIVEN; ASSESSMENT CHARGED; FOLLOWING POC; WILL PASS ON REPORT.
[2019-03-09 05:37] LABS: ALBUMIN 3.6 g/dL (3.4-5.0); CALCIUM 9.5 mg/dL (8.5-10.1); CREATININE 1.6 mg/dL (0.7-1.3); PHOSPHORUS 2.9 mg/dL (2.5-4.9); POTASSIUM 4.7 mmol/L (3.5-5.1)
[2019-03-09 07:35] VITALS: BP 150/84
[2019-03-09 11:35] VITALS: BP 130/97
[2019-03-09 15:40] VITALS: BP 141/68
--- NOTE | 2019-03-09 16:20 | NUR ---
ASSUMED CARE OF PT AT 0700. PT WAS AWAKE AND ORIENTED TO SELF AND FOLLOWS COMMANDS. PT SHOWED SIGNS OF AGITATION AND PULLED AT EKG LEADS, CATHETER, AND TRIED TO REMOVE GOWN. PT DID NOT REPORT ANY PAIN OR SHORTNESS OF BREATH, BUT STATED THAT HE WAS HOT. BODY TEMP WAS 36.8 C, FAN TURNED ON AND BLANKETS REMOVED FOR PT COMFORT. HEART RHYTHM SINUS BRADYCARDIA WITH A HEART RATE MAINTAINED IN THE UPPER 30'S TO LOW 40'S. A PT REFUSED TO SWALLOW. WHEN ASSISTED WITH FEEDING AT 0800 PT DISCARDED FOOD AND NECTAR LIQIUID IN [place]. RN WITHELD PO MEDICATIONS AND NOTIFIED DR. PEÑA. RN INSTRUCTED TO REATTEMPT SWALLOWING ASSESSMENT. RN ATTEMPTED TO REASSESS SWALLOWING AT 1330, PT REFUSED TO SWALLOW AND DISCARDED FOOD AND LIQUID NECTAR IN [place]. PT BEGAN SWALLOWING WITH NO SIGNS OF DIFFICULTY AT 1600 WHEN SISTER ARRIVED WITH FOOD. WILL CONTINUE TO MONITOR PT SWALLOWING.
--- NOTE | 2019-03-09 18:16 | EKG ---
[address] [employer] [place] [address] ELECTROCARDIOGRAM REPORT Name: JOSE SHELTON Room #: 205-P ADM IN M.R.#: [id number] ������������������ Admission: 03/03/19 ������������������ Attend Phys: Tony Sullivan MD Discharge: ������������������ Date of : 43 Report #: [id number] ����������������������������������������������������������������� [id number] THIS REPORT FOR: //name// [facility] Test Date: 2019-03-07 Test Time: 11:40:43 Pat Name: JOES SHELTON Department: Room: 205 Gender: M Home Stager: Kenia HU : 1945 Requested By: Marion Sierra Order Number: [id number] MD: Willis Montemayor Measurements Intervals [place] Rate: 40 P: 51 TN: 107 QRS: 19 QRSD: 89 T: 4 QT: 492 QTc: 402 Interpretive Statements Sinus bradycardia Short TN interval Nonspecific ST-T wave changes Compared to ECG 03/05/2019 20:26:41 Short TN interval now present Sinus tachycardia no longer present Electronically Signed On 03-09-2019 18:16:34 CDT by Willis Montemayor [email or web address] ��������������������������������������������� <ELECTRONICALLY SIGNED> ���������������������������������������� By: Willis Montemayor MD ��������������������������������������������� 03/09/19 1816 1140 1140 Willis Montemayor MD /EPI
--- NOTE | 2019-03-09 18:21 | NUR ---
PRECEPTOR FOR PIPPA: AGREE WITH PIPPA'S ASSESSMENTS AND NOTE. DMA
--- NOTE | 2019-03-09 18:33 | EKG ---
[address] [place] [address] ELECTROCARDIOGRAM REPORT Name: JOSE SHELTON Room #: 205-P ADM IN M.R.#: [id number] ������������������ Admission: 03/03/19 ������������������ Attend Phys: Tony Sullivan MD Discharge: ������������������ Date of : 43 Report #: [id number] ����������������������������������������������������������������� [id number] THIS REPORT FOR: //name// [facility] Test Date: 2019-03-08 Test Time: 07:14:39 Pat Name: JOSE SHELTON Department: Room: 205 Gender: M Casino Runner: GISELLA : 1945 Requested By: Marion Sierra Order Number: [id number] MD: Willis Montemayor Measurements Intervals [place] Rate: 42 P: 51 ME: 108 QRS: 19 QRSD: 100 T: 6 QT: 519 QTc: 434 Interpretive Statements Sinus bradycardia Short ME interval Nonspecific ST-T wave changes Poor R-wave progression Compared to ECG 03/05/2019 20:26:41 no significant changes Electronically Signed On 03-09-2019 18:33:24 CDT by Willis Montemayor [email or web address] ��������������������������������������������� <ELECTRONICALLY SIGNED> ���������������������������������������� By: Willis Montemayor MD ��������������������������������������������� 03/09/19 1833 3 3 Willis Montemayor MD /EPI
--- NOTE | 2019-03-09 18:53 | EKG ---
[address] [address] ELECTROCARDIOGRAM REPORT Name: JOSE SHELTON Room #: 205-P ADM IN M.R.#: [id number] ������������������ Admission: 03/03/19 ������������������ Attend Phys: Tony Sullivan MD Discharge: ������������������ Date of : 43 Report #: [id number] ����������������������������������������������������������������� [id number] THIS REPORT FOR: //name// [facility] Test Date: 2019-03-09 Test Time: 07:27:31 Pat Name: JOSE SHELTON Department: Room: 205 P Gender: M Roll Up Operator: GISELLA : 1945 Requested By: Marion Sierra Order Number: [id number] MD: Willis Montemayor Measurements Intervals [place] Rate: 37 P: NV: QRS: 22 QRSD: 112 T: 21 QT: 540 QTc: 424 Interpretive Statements Sinus versus low atrial bradycardia Short NV interval Borderline intraventricular conduction delay Compared to ECG 03/05/2019 20:26:41 No significant changes Electronically Signed On 03-09-2019 18:53:13 CDT by Willis Montemayor [email or web address] ��������������������������������������������� <ELECTRONICALLY SIGNED> ���������������������������������������� By: Willis Montemayor MD ��������������������������������������������� 03/09/19 1853 6 6 Willis Montemayor MD /EPI
[2019-03-09 19:32] VITALS: BP 157/77
--- NOTE | 2019-03-10 02:56 | NUR ---
ASSESSMENT DOCUMENTED. PATIENT DROWSY BUT AROUSABLE TO NAME CALLING. ORIENTED TO SELF AND BIRTHDATE, OBEYS COMMAND, BILATERAL WEAK GENERAL I FARMWORKER, ABLE TO LIFT BOTH LEGS AGAINST GRAVITY, WOULD TURN TO HIS RIGHT SIDE INDEPENDENTLY, VERBAL WEAK SOMETIMES HARD TO UNDERSTAND. ON ASPIRATION PRECAUTION. PATIENT ABLE TO TAKE P.O. MED BUT PATIENT TOOK LONGER TIME TO SWALLOW IT. ORAL CARE DONE, BOTELLO CARE DONE, PERIANAL CARE RENDERED. MAINTAINED ON FALL PRECAUTION. FF UP POC.
[2019-03-10 04:19] VITALS: BP 155/73
[2019-03-10 05:31] LABS: ALBUMIN 3.1 g/dL (3.4-5.0); CALCIUM 8.3 mg/dL (8.5-10.1); CREATININE 1.3 mg/dL (0.7-1.3); PHOSPHORUS 3.1 mg/dL (2.5-4.9); POTASSIUM 3.9 mmol/L (3.5-5.1)
[2019-03-10 07:20] VITALS: BP 145/76
[2019-03-10 11:25] VITALS: BP 148/81
[2019-03-10 15:50] VITALS: BP 135/77
--- NOTE | 2019-03-10 23:50 | EKG ---
[address] [address] ELECTROCARDIOGRAM REPORT Name: JOSE SHELTON Room #: 205-P ADM IN M.R.#: [id number] ������������������ Admission: 03/03/19 ������������������ Attend Phys: Tony Sullivan MD Discharge: ������������������ Date of : 43 Report #: [id number] ����������������������������������������������������������������� [id number] THIS REPORT FOR: //name// [facility] Test Date: 2019-03-10 Test Time: 07:26:17 Pat Name: JOSE SHELTON Department: Room: 205 P Gender: M Cupola Hoist Operator: GISELLA : 1945 Requested By: Marion Sierra Order Number: [id number] MD: Willis Montemayor Measurements Intervals [place] Rate: 36 P: 14 NH: 139 QRS: 11 QRSD: 102 T: 4 QT: 561 QTc: 435 Interpretive Statements Sinus bradycardia Nonspecific ST/T wave changes Compared to ECG 03/09/2019 07:27:31 no significant changes Electronically Signed On 03-10-2019 23:49:51 CDT by Willis Montemayor [email or web address] ��������������������������������������������� <ELECTRONICALLY SIGNED> ���������������������������������������� By: Willis Montemayor MD ��������������������������������������������� 03/10/19 2349 5 5 Willis Montemayor MD /EPI
[2019-03-11 03:11] LABS: HEMATOCRIT 38.8 % (42.0-52.0); MCH 28.7 pg (26.0-34.0); MCHC 33.4 g/dL (28.0-37.0); MCV 85.7 fL (80.0-100.0); RBC 4.52 mil/uL (4.50-6.00); RDW 16.5 % (10.5-14.5); WBC 5.2 thou/uL (4.0-11.0)
[2019-03-11 03:27] LABS: CALCIUM 8.7 mg/dL (8.5-10.1); CREATININE 1.1 mg/dL (0.7-1.3); POTASSIUM 3.9 mmol/L (3.5-5.1)
[2019-03-11 04:41] VITALS: BP 147/75
--- NOTE | 2019-03-11 05:41 | NUR ---
ASSESSMENT DOCUMENTED. DENIES PAIN, ORIENTED TO SELF BIRTHDATE, KNOWS THAT HE IS IN THE HOSPITAL BUT CANT SAY THE SPECIFIC NAME, REORIENTATION DONE. OBEYS COMMAND, WOULD TURN INDEPENDENTLY. DENIES PAIN BUT COMPLAINT OF BEING UNCOMFORTABLE, WOULD BE TURNING 360 DEGEES AT TIME AND TUBINGS WOULD BE AROUND HIM, UNTANGLING DONE. BACK CARE WITH CHLORHEXIDINE WIPES DONE, ORAL CARE RENDERED. MAINTAINED ON ASPIRATION PRECAUTION, SMALL FREQUENT FEEDING ENCOURAGED. PATIENT WAS ABLE TO TAKE 6 SPOONFUL ONLY OF THICKENED ORANGE JUICE. MAINTAINED ON HIGH FALL RISK PRECAUTION. PLEASE CALL DR PARKER OFFICE THIS MORNING FOR THE CONSULT OF DR PEÑA FOR THE GOAL OF CARE. FF UP POC.
[2019-03-11 07:20] VITALS: BP 136/68
[2019-03-11 11:30] VITALS: BP 131/58
--- NOTE | 2019-03-11 14:00 | NUR ---
Dr Lucas sp with casemgt and discussed hospice services with sister who appears in agreement with hospice. Sp with sister via phone. Reviewed hospice services at [facility] for ltc. Discussed Hospice houses and options. Sister interested in Hospcie House eval, she is familiar with facility and location. Faxed updated information to Hospice for eval.
[2019-03-11 15:20] VITALS: BP 90/58
--- NOTE | 2019-03-11 17:11 | NUR ---
ASSESSMENT CHARTED - PATIENT REFUSING MEDICATIONS AND ANY PO INTAKE - ATTEMPTED TO DO MOUTH CARE AND PATIENT ROLLED HEAD AWAY. PT HAS TURNED IN ASHTYN WHEN ASKED. HAS NOT BEEN VERY CONVERSANT TODAY HAS BEEN FOLLOWING COMMANDS. HOSPICE INTO SEE PATIENT TODAY - PT WILL BE REASSESSED IN THE AM FOR HOSPICE HOUSE OR LT HOSPICE - IV FLUIDS D/C'S / MONITOR REMOVED. PO MEDS AVAILABE (LIQUID) IF NEEDED FOR PAIN / ANXIOUNESS. PT LAYING ON HIS SIDE WITH HIS EYES CLOSED AT PRESENT.
--- NOTE | 2019-03-11 17:15 | NUR ---
met with sister, and her spouse. Hospice liason evaled patient initally not appropriate for hospice house. However patient having symptoms of SOA. his IV infiltrated with no plan to initate new IV. Orders rec for roxanol/ativan sl. Hospice to reeval in am if symptoms managed. Intially sister did not want to sign outside hospital DNR because patients AD/living will noted wanted CPR. After much discussion of code status and quality of life sister did want to sign outside DNR on file. Plan hospice reeval in am.
[2019-03-11 19:32] VITALS: BP 97/77
--- NOTE | 2019-03-12 03:26 | NUR ---
PT MEDSERG. ASSESSMENT CHARTED. PT DENIES PAIN OR CONCERN. REFUSED HS MEDS. . ALERT, WILL TALK BUT VERY WEAK, SOA- NC 2 L. TURNS SELF IN BED. URINARY CATH IN PLACE. PT OFFERED FOOD AND DRINK MULTIPLE TIMES, REFUSED FOOD TOOK 1 SIP OF THICKEND OJ THIS SHIFT. MOUTH DRY, REFUSED MOUTH SWABS. DROWSY BUT EASILY AROUSED. WILL CONTINUE TO MONITOR AND WITH POC.
[2019-03-12 05:36] VITALS: BP 92/48
[2019-03-12 07:50] VITALS: BP 122/64
--- NOTE | 2019-03-12 08:43 | NUR ---
PER CHART AND RN, PT IS ON HOSPICE SERVICES; THEREFORE, DISCHARGED FROM OCCUPATIONAL THERAPY SERVICES IN ACUTE CARE SETTING.
--- NOTE | 2019-03-12 10:57 | NUR ---
Hospice reevaled patient and he is accepted to Hospice House. [facility] for 1230, chart copied. Original DNR in Chart copy. Notified sister, RN and house of time of transport. RN has number for report.
[2019-03-12] MEDS ORDERED: FLOMAX0.4 MG PO (11:42)
[2019-03-12] MEDS ORDERED: DEPAKOTE SPRIN125 MG PO (11:42)
[2019-03-12] MEDS ORDERED: LORAZEPAM I2 MG/1 M2 SUBLING (11:42)
[2019-03-12] MEDS ORDERED: MSL20MG/ML SUBLING (11:42)
--- NOTE | 2019-03-12 11:45 | NUR ---
Pt TO TRANSITION TO HOSPICE SERVICES AND D/C TO HOSPICE HOUSE TODAY. Pt TO BE D/C'D FROM PT IN THE ACUTE CARE SETTING.
--- NOTE | 2019-03-12 13:21 | NUR ---
ASSUMED CARE OF PT AT 0700. PT SLEEPING, OPENS EYES WHEN ASKED. PT HAD AUDIBLE WHEEZING AND ROXINOL GIVEN. PT RESPONDED WELL TO TREATMENT WITH ROXINOL. PT REFUSED ORAL CARE. VITALS AND OXYGEN WNL. PT HAD NO IV ACCESS OR TELE MONITORING. EMS ARRIVED TO TRANSPORT PT TO HOSPICE 1230. PT HAD SLIPPERS AND SMALL BAG OF CLOTHING GO WITH HIM.
== END 2019-03-12 13:00 | disposition hospice, inpatient (51) | DRG 871 ==
LOC: ER 08:40 → EROBS 11:53 → 3W 11:53 → ICU 03-05 22:36 → 2N 03-08 18:41
PROVIDERS: Emergency Medicine; Hospitalist; Internal Medicine Hematology & Oncology; Internal Medicine Infectious Disease; Nurse Practitioner Family; ADMIT Internal Medicine
DX: A41.9 Sepsis, unspecified organism (principal); R65.21 Severe sepsis with septic shock; G92 Toxic encephalopathy; N17.9 Acute kidney failure, unspecified; C90.01 Multiple myeloma in remission; E87.1 Hypo-osmolality and hyponatremia; I42.9 Cardiomyopathy, unspecified; E87.2 Acidosis; I77.6 Arteritis, unspecified; R13.10 Dysphagia, unspecified; N18.9 Chronic kidney disease, unspecified; I12.9 Hypertensive chronic kidney disease with stage 1 through stage 4 chronic kidney disease, or unspecified chronic kidney disease; F03.90 Unspecified dementia, unspecified severity, without behavioral disturbance, psychotic disturbance, mood disturbance, and anxiety; E78.5 Hyperlipidemia, unspecified; D69.2 Other nonthrombocytopenic purpura; D69.6 Thrombocytopenia, unspecified; F31.9 Bipolar disorder, unspecified; N28.89 Other specified disorders of kidney and ureter; I95.9 Hypotension, unspecified; K80.20 Calculus of gallbladder without cholecystitis without obstruction; N20.0 Calculus of kidney; Z79.899 Other long term (current) drug therapy; Z88.8 Allergy status to other drugs, medicaments and biological substances
CPT/HCPCS: 10078; 10081; 10879